=== PATIENT | male | born 1960 | race Caucasian/White ===

== ENCOUNTER 2021-02-09 19:10 | Inpatient (IN) | payer OTHER ==
[2021-02-09 19:58] VITALS: BMI 27.2
[2021-02-09] MEDS ORDERED: ACETAMINOPHEN 325 MG TABLET (FP) PO PRN ×2 (19:59)
[2021-02-09] MEDS ORDERED: ONDANSETRON *ODT* 4 MG TABLET SL PRN (19:59)
[2021-02-09] MEDS ORDERED: MAGNESIUM CITRATE 300 ML BOTTLE PO PRN (19:59)
[2021-02-09] MEDS ORDERED: MAGNESIUM HYDROX 2400MG/30ML ORAL SUSPENSION 30 ML CUP PO PRN (19:59)
[2021-02-09] MEDS ORDERED: BISMUTH SUBSALICYLATE 524 MG/30 ML PO PRN (19:59)
[2021-02-09] MEDS ORDERED: METHOCARBAMOL 500 MG TABLET PO PRN (19:59)
[2021-02-09] MEDS ORDERED: P-EPHED 60MG/TRIPROLIDI 2.5MG TABLET PO PRN (19:59)
[2021-02-09] MEDS ORDERED: guaiFENesin 200 MG/10 ML 10 ML UNIT-DOSE CUPS PO PRN (19:59)
[2021-02-09] MEDS ORDERED: IBUPROFEN 400 MG TABLET (FP) PO PRN (19:59)
[2021-02-09] MEDS ORDERED: MENTHOL/PHENOL 1 EACH UD MM PRN (19:59)
[2021-02-09] MEDS ORDERED: NICOTINE POLACRILEX 4 MG GUM BUC PRN (19:59)
[2021-02-09] MEDS ORDERED: MAG HYDROX/AL HYDROX/SIMETH 30 ML UNIT-DOSE CUP PO PRN (19:59)
[2021-02-09] MEDS ORDERED: LORazepam 1 MG TABLET PO PRN (19:59)
[2021-02-09] MEDS ORDERED: DICYCLOMINE HCL 10 MG CAPSULE PO PRN (19:59)
[2021-02-09] MEDS ORDERED: ONDANSETRON *ODT* 4 MG TABLET ONE (20:16)
[2021-02-09] MEDS: LORazepam 2 MG TABLET PO SCH (23:42)
[2021-02-09] MEDS: THIAMINE HCL 100 MG TABLET (FP) PO SCH (23:48)
[2021-02-09] MEDS: MELATONIN 5 MG TABLETS PO SCH (23:49)
[2021-02-10] MEDS: LORazepam 2 MG TABLET PO SCH ×4 (05:56→22:34)
[2021-02-10 10:17] LABS: HEMOGLOBIN 13.4 GM/dL (11.7-16.9); MCH 35.4 pg (25.7-33.7); MCHC 34.5 g/dl (32.0-35.9); MEAN CELL VOLUME 102.8 fl (80-96); MEAN PLT VOLUME 7.9 fl (7.5-11.1); PLATELET COUNT 185 K/MM3 (134-434); RBC 3.79 M/mm3 (4.00-5.60); RDW 14.4 % (11.9-15.9); WHITE BLOOD COUNT 6.5 K/mm3 (4.0-10.0)
[2021-02-10 10:27] LABS: BLOOD UREA NITROGEN 11.9 mg/dL (7-18); CALCIUM 8.5 mg/dL (8.5-10.1)
[2021-02-10 10:30] LABS: CREATININE 0.9 mg/dL (0.55-1.3)
[2021-02-10 10:31] LABS: BILIRUBIN,TOTAL 0.4 mg/dL (0.2-1); TOT PROT 5.8 g/dl (6.4-8.2)
[2021-02-10] MEDS: PRENATAL VITAMINS W/ FOLIC ACID TABLET (FP) PO SCH (10:54)
[2021-02-10] MEDS: NICOTINE 21 MG/24 HOURS TOPICAL PATCH TD SCH (10:54)
[2021-02-10] MEDS: CARVEDILOL 6.25 MG TABLET (FP) PO SCH ×2 (12:54→22:34)
[2021-02-10] MEDS: ASPIRIN 81 MG CHEWABLE TABLETS PO SCH (12:54)
[2021-02-10] MEDS ORDERED: BUPRENORPHINE/NALOXONE 8 MG/2 MG FILM (DETOX) SL SCH (14:00)
[2021-02-10] MEDS: BUPRENORPHINE/NALOXONE 8 MG/2 MG FILM PACKET SL SCH ×2 (14:55→22:34)
[2021-02-10] MEDS: THIAMINE HCL 100 MG TABLET (FP) PO SCH (22:33)
[2021-02-10] MEDS: ATORVASTATIN CA 20 MG TABLET (FP) PO SCH (22:34)
[2021-02-10] MEDS: MELATONIN 5 MG TABLETS PO SCH (22:34)
[2021-02-11] MEDS: LORazepam 1 MG TABLET PO SCH ×4 (05:18→22:17)
[2021-02-11] MEDS: CARVEDILOL 6.25 MG TABLET (FP) PO SCH ×2 (10:24→22:17)
[2021-02-11] MEDS: NICOTINE 21 MG/24 HOURS TOPICAL PATCH TD SCH (10:24)
[2021-02-11] MEDS: PRENATAL VITAMINS W/ FOLIC ACID TABLET (FP) PO SCH (10:24)
[2021-02-11] MEDS: ASPIRIN 81 MG CHEWABLE TABLETS PO SCH (10:24)
[2021-02-11] MEDS: NIFEdipine E.R. 90 MG TABLET PO SCH (11:49)
[2021-02-11] MEDS ORDERED: POTASSIUM CHLORIDE TABS 20 MEQ TABLET.ER (FP) PO ONE (12:50)
[2021-02-11] MEDS: BUPRENORPHINE/NALOXONE 8 MG/2 MG FILM PACKET SL SCH ×2 (14:03→22:19)
[2021-02-11] MEDS: THIAMINE HCL 100 MG TABLET (FP) PO SCH (22:17)
[2021-02-11] MEDS: MELATONIN 5 MG TABLETS PO SCH (22:18)
[2021-02-11] MEDS: ATORVASTATIN CA 20 MG TABLET (FP) PO SCH (22:18)
[2021-02-12] MEDS ORDERED: LORazepam 0.5 MG TABLET PO PRN
[2021-02-12] MEDS: BUPRENORPHINE/NALOXONE 8 MG/2 MG FILM PACKET SL SCH ×4 (05:39→23:18)
[2021-02-12] MEDS: LORazepam 0.5 MG TABLET PO SCH ×4 (05:52→22:08)
[2021-02-12] MEDS: CARVEDILOL 6.25 MG TABLET (FP) PO SCH ×2 (10:08→22:12)
[2021-02-12] MEDS: ASPIRIN 81 MG CHEWABLE TABLETS PO SCH (10:08)
[2021-02-12] MEDS: PRENATAL VITAMINS W/ FOLIC ACID TABLET (FP) PO SCH (10:09)
[2021-02-12] MEDS: NICOTINE 21 MG/24 HOURS TOPICAL PATCH TD SCH (10:09)
[2021-02-12] MEDS: NIFEdipine E.R. 90 MG TABLET PO SCH (10:10)
[2021-02-12] MEDS ORDERED: POTASSIUM CHLORIDE ORAL LIQUID 20 MEQ/15 ML PO ONE ×2 (15:00→19:00)
[2021-02-12] MEDS: MELATONIN 5 MG TABLETS PO SCH (22:08)
[2021-02-12] MEDS: ATORVASTATIN CA 20 MG TABLET (FP) PO SCH (22:08)
[2021-02-12] MEDS: THIAMINE HCL 100 MG TABLET (FP) PO SCH (22:08)
[2021-02-12 23:28] VITALS: TEMP 98.2
[2021-02-13] MEDS ORDERED: LORazepam 0.5 MG TABLET PO ONE (05:00)
[2021-02-13 06:16] VITALS: BP 130/81; PULSE 65
[2021-02-13] MEDS: BUPRENORPHINE/NALOXONE 8 MG/2 MG FILM PACKET SL SCH (07:46)
== END 2021-02-13 09:30 | disposition home or self-care (01) | DRG 773 ==
LOC: YASAS 19:10 → Y6N 21:27
PROVIDERS: ADMIT Allergy & Immunology; ATTEND Allergy & Immunology
PROC: HZ2ZZZZ Detoxification Services for Substance Abuse Treatment (ICD-10-PCS; principal; 2021-02-09)
DX: F10.230 Alcohol dependence with withdrawal, uncomplicated (principal); F11.20 Opioid dependence, uncomplicated; F17.210 Nicotine dependence, cigarettes, uncomplicated; F10.282 Alcohol dependence with alcohol-induced sleep disorder; E87.6 Hypokalemia; E78.00 Pure hypercholesterolemia, unspecified; I25.10 Atherosclerotic heart disease of native coronary artery without angina pectoris; I10 Essential (primary) hypertension; Z95.5 Presence of coronary angioplasty implant and graft; K21.9 Gastro-esophageal reflux disease without esophagitis; M54.5 Low back pain; G89.29 Other chronic pain; Z51.81 Encounter for therapeutic drug level monitoring; Z88.8 Allergy status to other drugs, medicaments and biological substances; Z59.0 Homelessness
CPT/HCPCS: 36415; 80053; 84132; 85027; 86780; 93005; 93010; C9803; Q0162; U0003; U0005